=== PATIENT | male | born 1945 | race Caucasian/White ===

== ENCOUNTER 2019-02-08 09:45 | Day surgery (SDC) | payer MEDICARE ==
[~2019-02-08] VITALS: Ht 53.3 cm; Wt 118.0 kg
[~2019-02-08 09:45] MED LIST: ASPI-496 PO; BUPIVACAINE/PF 0.5% ONE; EPINEPHRINE 1 MG/ML, 1ML ONE; LIDOCAINE 1%, 20ML ONE; LOSA1TAB12 PO; MONT10TA6 PO; NABU750T PO; PARO20TA4 PO
[2019-02-08 10:10] VITALS: BP 130/91
[2019-02-08] MEDS ORDERED: MIDAZOLAM 1 MG/ML, 2ML ONE (10:35)
[2019-02-08] MEDS ORDERED: FENTANYL PF 100 MCG/2ML ONE ×2 (10:35→14:58)
[2019-02-08] MEDS ORDERED: ROCURONIUM 10 MG/ML,10ML ONE (12:05)
[2019-02-08] MEDS ORDERED: EPHEDRINE 50 MG/ML, 1ML ONE (12:05)
[2019-02-08] MEDS ORDERED: KETOROLAC 30 MG/1 ML ONE (12:05)
[2019-02-08] MEDS ORDERED: PROPOFOL 10 MG/ML, 20ML ONE (12:52)
[2019-02-08] MEDS ORDERED: ONDANSETRON 2MG/ML, 2ML ONE (12:52)
[2019-02-08] MEDS ORDERED: BUPIVACAINE/PF 0.25% ONE (12:52)
[2019-02-08] MEDS ORDERED: DEXAMETHASONE 4 MG/ML, 1ML ONE (12:52)
[2019-02-08] MEDS ORDERED: LIDOCAINE-MPF 2% ,5ML ONE (12:52)
[2019-02-08] MEDS ORDERED: CEFAZOLIN 1,000 MG ONE (12:52)
[2019-02-08] MEDS ORDERED: SUCCINYLCHOLINE 20 MG/ML, 10ML ONE (12:52)
[2019-02-08] MEDS ORDERED: EPINEPHRINE 1 MG/ML, 1ML ONE ×2 (12:59→13:24)
[2019-02-08] MEDS ORDERED: PROMETHAZINE 25 MG/ML, 1ML IV PRN (13:00)
[2019-02-08] MEDS ORDERED: FENTANYL PF 100 MCG/2ML IV PRN (13:00)
[2019-02-08] MEDS ORDERED: ACETAMINOPHEN 325 MG TABLET PO PRN (13:00)
[2019-02-08] MEDS ORDERED: METOPROLOL 1 MG/ML, 5ML IV PRN (13:00)
[2019-02-08] MEDS ORDERED: hydrALAzine 20 MG/ML, 1ML IV PRN (13:00)
[2019-02-08] MEDS ORDERED: OXYcodone 5 MG/5 ML ORAL.SOL UDC PO PRN (13:00)
[2019-02-08] MEDS ORDERED: ALBUTEROL/IPRATROPIUM 2.5MG/0.5MG, 3 ML NPPB PRN (13:00)
[2019-02-08] MEDS ORDERED: MEPERIDINE/PF 25MG/0.5ML IVPush PRN (13:00)
[2019-02-08] MEDS ORDERED: KETOROLAC 30 MG/1 ML IV PRN (13:00)
[2019-02-08] MEDS ORDERED: ONDANSETRON 2MG/ML, 2ML IV PRN (13:00)
[2019-02-08] MEDS ORDERED: MIDAZOLAM 1 MG/ML, 2ML IV PRN (13:00)
[2019-02-08] MEDS ORDERED: ACETAMINOPHEN 325 MG TABLET ONE (14:58)
[2019-02-08] MEDS ORDERED: OXYcodone 5 MG/5 ML ORAL.SOL UDC ONE (14:58)
[2019-02-08] MEDS ORDERED: ACETAMINOPHEN 650 MG/20.3 ML UDC ONE (14:58)
[2019-02-09] MEDS ORDERED: HYDROCHLOROTHIAZIDE 25 MG TABLET PO SCH (09:00)
[2019-02-09] MEDS ORDERED: NABUMETONE 750 MG HOMEMEDPO SCH (09:00)
[2019-02-09] MEDS ORDERED: MONTELUKAST 10 MG TABLET PO SCH (09:00)
[2019-02-09] MEDS ORDERED: ASPIRIN 81 MG TABLET EC PO SCH (09:00)
[2019-02-09] MEDS ORDERED: PAROXETINE 20 MG TABLET PO SCH (09:00)
[2019-02-09] MEDS ORDERED: LOSARTAN 50MG TABLET PO SCH (09:00)
== END 2019-02-08 18:50 | disposition home or self-care (01) ==
LOC: OUT 09:45
PROVIDERS: ATTEND Orthopaedic Surgery
DX: S43.431A Superior glenoid labrum lesion of right shoulder, initial encounter (principal); M19.011 Primary osteoarthritis, right shoulder; M66.821 Spontaneous rupture of other tendons, right upper arm; M94.211 Chondromalacia, right shoulder; M65.811 Other synovitis and tenosynovitis, right shoulder; M75.41 Impingement syndrome of right shoulder; G47.33 Obstructive sleep apnea (adult) (pediatric); J44.9 Chronic obstructive pulmonary disease, unspecified; I10 Essential (primary) hypertension; X58.XXXA Exposure to other specified factors, initial encounter; Y93.89 Activity, other specified; Y92.89 Other specified places as the place of occurrence of the external cause; Y99.8 Other external cause status
CPT/HCPCS: 29824; 29826; 29827; 29828; 64415; C1713; J0171; J0330; J0690; J1100; J1885; J2405; J2704; J3010; J3490; J2250